=== PATIENT | female | born 1965 | race Caucasian/White ===

== ENCOUNTER 2019-07-15 12:34 | Outpatient (CLI) | payer BC, SELFPAY ==
--- NOTE | 2019-07-15 13:13 | MM_ITS ---
WS: [id number] RIGHT DIGITAL MAMMOGRAPHY WITH CAD CLINICAL INFORMATION: RT BREAST MASS COMPARISON: June 16, 2019 TECHNIQUE: 5 views of the right breast were obtained. FINDINGS: Scattered fibroglandular densities of the right breast. Stable prominent lymph nodes in the right axi lla. Stable 9 mm oval density upper outer right breast near the axillary tail. This persists on the s pot compression views. Ultrasound is pending. ULTRASOUND BREAST RIGHT TECHNIQUE: Ultrasound right breast focused area of concern. CLINICAL INFORMATION: RT BREAST MASS COMPARISON: None. FINDINGS: Ultrasound performed at the 9:00 position. There are 2 lymph nodes identified with preserved fatty hi lum. The largest measures 1.3 x 0.4 x 1.0 cm. This has a benign appearance. Additional incidental lym ph nodes are seen in this area. No evidence of pathologic mass or lesion to target for biopsy. No oth er suspicious findings. MM/[place] [id number] IMPRESSION: BI-RADS: 2-Benign FOLLOW UP: 1 Year Follow-up Recommend return to annual screening mammography.
--- NOTE | 2019-07-15 13:16 | US_ITS ---
WS: [id number] RIGHT DIGITAL MAMMOGRAPHY WITH CAD CLINICAL INFORMATION: RT BREAST MASS COMPARISON: June 16, 2019 TECHNIQUE: 5 views of the right breast were obtained. FINDINGS: Scattered fibroglandular densities of the right breast. Stable prominent lymph nodes in the right axi lla. Stable 9 mm oval density upper outer right breast near the axillary tail. This persists on the s pot compression views. Ultrasound is pending. ULTRASOUND BREAST RIGHT TECHNIQUE: Ultrasound right breast focused area of concern. CLINICAL INFORMATION: RT BREAST MASS COMPARISON: None. FINDINGS: Ultrasound performed at the 9:00 position. There are 2 lymph nodes identified with preserved fatty hi lum. The largest measures 1.3 x 0.4 x 1.0 cm. This has a benign appearance. Additional incidental lym ph nodes are seen in this area. No evidence of pathologic mass or lesion to target for biopsy. No oth er suspicious findings. US/US breast RT limited* [id number] IMPRESSION: BI-RADS: 2-Benign FOLLOW UP: 1 Year Follow-up Recommend return to annual screening mammography.
== END 2019-07-15 12:35 | disposition home or self-care (01) ==
LOC: RADSHAW 12:41
PROVIDERS: Family Provider Electrodiagnostic Medicine; PCP Electrodiagnostic Medicine; Visit Provider Electrodiagnostic Medicine
DX: N63.11 Unspecified lump in the right breast, upper outer quadrant (principal)
CPT/HCPCS: 76642; 77065

== ENCOUNTER → 2019-07-24 08:52 | Outpatient (BNVA) | payer BC, SELFPAY | PROVIDERS: Family Provider Electrodiagnostic Medicine; PCP Electrodiagnostic Medicine; Referring Provider Electrodiagnostic Medicine; Visit Provider Internal Medicine Rheumatology | DX: L40.50 Arthropathic psoriasis, unspecified (principal); L40.0 Psoriasis vulgaris; Z11.59 Encounter for screening for other viral diseases; Z79.899 Other long term (current) drug therapy; M54.5 Low back pain; M77.9 Enthesopathy, unspecified | CPT/HCPCS: 36415; 86704; 86705; 86803; 86812; 87340; 99214 ==

== ENCOUNTER 2019-08-11 10:50 | Outpatient (CLI) | payer BC, SELFPAY ==
--- NOTE | 2019-08-11 10:59 | XR_ITS ---
WS: [id number] RIGHT FOOT: 3 VIEW(S) TECHNIQUE: PA, oblique and lateral. HISTORY: psoriatic arthritis COMPARISON: None available. No acute fracture or dislocation. Normal tarsal/metatarsal alignment. No erosions or pencil in cup deformity at the IP joints. No soft tissue edema. Very small amount of calcification at the distal Achilles tendon. XR/XR foot RT min 3V* [id number] IMPRESSION: 1. Normal IVP joints. 2. Tiny amount calcification of the distal Achilles tendon.
--- NOTE | 2019-08-11 10:59 | XR_ITS ---
WS: [id number] LEFT FOOT: 3 VIEW(S) TECHNIQUE: PA, oblique and lateral. HISTORY: psoriatic arthritis COMPARISON: None available. No acute fracture or dislocation. Normal tarsal/metatarsal alignment. No pencil in cup deformities or interphalangeal joint space narrowing. No erosions. Enthesopathy at the Achilles tendon attachment. No erosions involving the posterior calcaneus. XR/XR foot LT min 3V* [id number] IMPRESSION: 1. No evidence for psoriatic arthritic changes at the IP joints. 2. Enthesopathy at the Achilles tendon attachment.
--- NOTE | 2019-08-11 10:59 | XR_ITS ---
WS: [id number] LEFT HAND: 3 VIEW(S) TECHNIQUE: PA, oblique and lateral. HISTORY: psoriatic arthritis COMPARISON: None available. No acute fracture or dislocation. IP joints are normal and symmetric. No erosions or enthesopathies. No bony bridging. No periostitis. XR/XR hand LT min 3V* [id number] IMPRESSION: Negative LEFT hand.
--- NOTE | 2019-08-11 10:59 | XR_ITS ---
WS: [id number] RIGHT HAND: 3 VIEW(S) TECHNIQUE: PA, oblique and lateral. HISTORY: psoriatic arthritis COMPARISON: None available. No acute fracture or dislocation. Interphalangeal joints are well-maintained. No erosions or periostitis. No soft tissue edema or displ acement. XR/XR hand RT min 3V* [id number] IMPRESSION: Normal RIGHT hand.
--- NOTE | 2019-08-11 10:59 | XR_ITS ---
WS: [id number] CHEST 2 VIEWS HISTORY: high risk medication use COMPARISON: None available. Lungs: Clear with no abnormality. No pleural effusion or pneumothorax. Cardiac size: Normal. Mediastinum/Aorta: Normal mediastinum. Bones: Normal. XR/XR chest 2V insp/exp [id number] IMPRESSION: Normal chest.
--- NOTE | 2019-08-11 10:59 | XR_ITS ---
WS: [id number] PELVIS: AP VIEW SUBMITTED HISTORY: Psoriatic arthritis, inflammatory back pain COMPARISON: None available. SI joints are symmetric bilaterally. No widening or erosions or sclerosis. Mild enthesopathy from the iliac crest. No bone destruction. No joint space narrowing of the hips. XR/XR pelvis 1-2V* [id number] IMPRESSION: Negative SI joints.
--- NOTE | 2019-08-11 10:59 | XR_ITS ---
WS: [id number] LEFT ELBOW: 2 VIEW(S) TECHNIQUE: AP and lateral. HISTORY: psoriatic arthritis COMPARISON: None available. No acute fractures or dislocation. No joint effusion. No erosions or bone hypertrophy. No soft tissue abnormality. XR/XR elbow LT 2V [id number] IMPRESSION: Normal LEFT elbow.
--- NOTE | 2019-08-11 10:59 | XR_ITS ---
WS: [id number] RIGHT ELBOW: 2 VIEW(S) TECHNIQUE: AP and lateral. HISTORY: psoriatic arthritis COMPARISON: None available. No acute fractures or dislocation. No joint effusion. No erosions or bone hypertrophy. No soft tissue abnormality. XR/XR elbow RT 2V [id number] IMPRESSION: Normal RIGHT elbow.
== END 2019-08-11 10:51 | disposition home or self-care (01) ==
LOC: RADWPI 10:53
PROVIDERS: Family Provider Electrodiagnostic Medicine; PCP Electrodiagnostic Medicine; Visit Provider Internal Medicine Rheumatology
DX: Z79.899 Other long term (current) drug therapy (principal); L40.50 Arthropathic psoriasis, unspecified; M54.9 Dorsalgia, unspecified
CPT/HCPCS: 71046; 72170; 73070; 73130; 73630

== ENCOUNTER → 2019-08-28 10:47 | Outpatient (BNVA) | payer BC, SELFPAY | PROVIDERS: Family Provider Electrodiagnostic Medicine; PCP Electrodiagnostic Medicine; Visit Provider Internal Medicine Rheumatology | DX: L40.0 Psoriasis vulgaris (principal); L40.50 Arthropathic psoriasis, unspecified; Z79.899 Other long term (current) drug therapy; Z11.59 Encounter for screening for other viral diseases; Z72.89 Other problems related to lifestyle | CPT/HCPCS: 36415; 80076; 82565; 86140; 86480; 86812 ==

== ENCOUNTER → 2019-08-28 10:55 | Outpatient (BNVA) | payer BC, SELFPAY | PROVIDERS: Family Provider Electrodiagnostic Medicine; PCP Electrodiagnostic Medicine; Visit Provider Internal Medicine Rheumatology | DX: L40.0 Psoriasis vulgaris (principal); L40.50 Arthropathic psoriasis, unspecified; Z79.899 Other long term (current) drug therapy | CPT/HCPCS: 85025 ==

== ENCOUNTER → 2019-12-18 09:53 | Outpatient (BNVA) | payer BC, SELFPAY | PROVIDERS: Family Provider Electrodiagnostic Medicine; PCP Electrodiagnostic Medicine; Visit Provider Internal Medicine Rheumatology | DX: Z79.899 Other long term (current) drug therapy (principal) | CPT/HCPCS: 36415; 80076; 82565; 85025; 85651; 86140 ==

== ENCOUNTER → 2020-02-23 15:22 | Outpatient (BNVA) | payer BC, SELFPAY | PROVIDERS: Family Provider Electrodiagnostic Medicine; PCP Electrodiagnostic Medicine; Visit Provider Internal Medicine Rheumatology | DX: L40.0 Psoriasis vulgaris (principal); L40.50 Arthropathic psoriasis, unspecified; Z79.899 Other long term (current) drug therapy; M77.9 Enthesopathy, unspecified; F17.210 Nicotine dependence, cigarettes, uncomplicated | CPT/HCPCS: 99214 ==

== ENCOUNTER → 2020-05-06 09:57 | Outpatient (BNVA) | payer BC, SELFPAY | PROVIDERS: Family Provider Electrodiagnostic Medicine; PCP Electrodiagnostic Medicine; Visit Provider Internal Medicine Rheumatology | DX: Z79.899 Other long term (current) drug therapy (principal) | CPT/HCPCS: 36415; 80076; 82565; 85025; 85651; 86140 ==

== ENCOUNTER → 2020-05-18 08:56 | Outpatient (BNVA) | payer BC, SELFPAY | PROVIDERS: Family Provider Electrodiagnostic Medicine; PCP Electrodiagnostic Medicine; Visit Provider Internal Medicine Rheumatology | DX: L40.0 Psoriasis vulgaris (principal); M77.9 Enthesopathy, unspecified; M77.11 Lateral epicondylitis, right elbow; F17.210 Nicotine dependence, cigarettes, uncomplicated; L40.50 Arthropathic psoriasis, unspecified; Z79.899 Other long term (current) drug therapy | CPT/HCPCS: 99214 ==

== ENCOUNTER 2020-08-03 08:10 | Outpatient (CLI) | payer BC, SELFPAY ==
--- NOTE | 2020-08-03 08:39 | MM_ITS ---
WS: [id number] BILATERAL SCREENING DIGITAL MAMMOGRAM WITH CAD HISTORY: SCREENING COMPARISON: 07/15/2019, 06/16/2019 and 05/03/2017 Bilateral CC and MLO views submitted. Computer aided detection analyzed. Breast composition: There are scattered areas of fibroglandular density. No suspicious masses, microc alcifications or architectural distortion. Benign calcifications. No interval change. MM/[place] [id number] IMPRESSION: BI-RADS: 2-Benign FOLLOW UP: 1 Year Follow-up
== END 2020-08-03 08:11 | disposition home or self-care (01) ==
LOC: RADSHAW 08:14
PROVIDERS: PCP Electrodiagnostic Medicine; Visit Provider Electrodiagnostic Medicine
DX: Z12.31 Encounter for screening mammogram for malignant neoplasm of breast (principal)
CPT/HCPCS: 77067

== ENCOUNTER → 2020-09-20 09:10 | Outpatient (BNVA) | payer BC, SELFPAY | PROVIDERS: PCP Electrodiagnostic Medicine; Visit Provider Internal Medicine Rheumatology | DX: L40.50 Arthropathic psoriasis, unspecified (principal); Z79.899 Other long term (current) drug therapy | CPT/HCPCS: 36415; 80076; 82565; 85025; 86140 ==

== ENCOUNTER → 2020-10-28 13:50 | Outpatient (BNVA) | payer BC, SELFPAY | PROVIDERS: PCP Electrodiagnostic Medicine; Visit Provider Internal Medicine Rheumatology | DX: L40.50 Arthropathic psoriasis, unspecified (principal); L40.0 Psoriasis vulgaris; Z79.899 Other long term (current) drug therapy; F17.210 Nicotine dependence, cigarettes, uncomplicated | CPT/HCPCS: 99214 ==

== ENCOUNTER → 2021-02-16 14:19 | Outpatient (BNVA) | payer BC, SELFPAY | PROVIDERS: PCP Electrodiagnostic Medicine; Visit Provider Internal Medicine Rheumatology | DX: L40.0 Psoriasis vulgaris (principal); L40.50 Arthropathic psoriasis, unspecified; Z71.89 Other specified counseling; Z79.899 Other long term (current) drug therapy | CPT/HCPCS: 36415; 80076; 82565; 85025; 86140 ==

== ENCOUNTER → 2021-02-21 08:46 | Outpatient (BNVA) | payer BC, SELFPAY | PROVIDERS: PCP Electrodiagnostic Medicine; Visit Provider Internal Medicine Rheumatology | DX: L40.0 Psoriasis vulgaris (principal); L40.50 Arthropathic psoriasis, unspecified; Z79.899 Other long term (current) drug therapy; Z71.89 Other specified counseling; F17.200 Nicotine dependence, unspecified, uncomplicated | CPT/HCPCS: 99214 ==

== ENCOUNTER → 2021-05-31 09:14 | Outpatient (BNVA) | payer BC, SELFPAY | PROVIDERS: PCP Electrodiagnostic Medicine; Visit Provider Internal Medicine Rheumatology | DX: L40.50 Arthropathic psoriasis, unspecified (principal); Z79.899 Other long term (current) drug therapy | CPT/HCPCS: 36415; 80076; 82565; 85025; 86140 ==

== ENCOUNTER 2021-11-28 12:28 | Outpatient (CLI) | payer BC, SELFPAY ==
[2021-11-28 13:02] LABS: Basophils % 0.4 %; Eosinophils # 0.4 10^3/uL (0.0-0.8); Eosinophils % 3.2 %; Hematocrit 50.5 % (37.0-47.0); Hemoglobin 15.6 g/dL (11.5-15.3); Lymphocytes # 2.3 10^3/uL (0.8-4.8); Lymphocytes % 20.4 %; Mean Corpuscular HGB Conc 30.9 g/dL (30.0-36.0); Mean Corpuscular Hemoglobin 29.1 pg (28.0-34.0); Mean Corpuscular Volume 94.2 fl (81-99); Monocytes # 0.4 10^3/uL (0.2-0.9); Monocytes % 3.8 %; Neutrophils # 7.97 10^3/uL (1.8-7.7); Neutrophils % 71.7 %; Nucleated Red Blood Cells % 0 %; Platelet Count 349 10^3/cmm (130-400); Red Blood Count 5.36 10^6/uL (4.1-5.3); Red Cell Distribution Width 14.1 % (12.1-15.1); White Blood Count 11.1 10^3/uL (4.0-10.0)
[2021-11-28 13:25] LABS: Albumin Level 3.9 g/dL (3.5-5.2); Alkaline Phosphatase 78 IU/L (35-105); Globulin 4.1 g/dL (1.3-4.6); Glomerular Filtration Rate 102.7 mL/min (90-130); Total Bilirubin 0.5 mg/dL (0.15-1.2)
[2021-11-28 14:04] LABS: Alanine Aminotransferase 19 U/L (0-33); Aspartate Amino Transferase 24 U/L (0-32)
== END 2021-11-28 12:29 | disposition home or self-care (01) ==
LOC: LAB 12:30
PROVIDERS: PCP Electrodiagnostic Medicine; Visit Provider Internal Medicine Rheumatology
DX: L40.0 Psoriasis vulgaris (principal); L40.50 Arthropathic psoriasis, unspecified; Z79.899 Other long term (current) drug therapy
CPT/HCPCS: 80076; 82565; 85025; 86140

== ENCOUNTER 2022-05-09 08:34 | Outpatient (CLI) | payer BC, SELFPAY ==
[2022-05-09 09:08] LABS: Basophils # 0.1 10^3/uL (0.0-0.1); Basophils % 0.6 %; Eosinophils # 0.3 10^3/uL (0.0-0.8); Eosinophils % 2.7 %; Hematocrit 47.6 % (37.0-47.0); Hemoglobin 15.5 g/dL (11.5-15.3); Lymphocytes # 1.7 10^3/uL (0.8-4.8); Lymphocytes % 16.8 %; Mean Corpuscular HGB Conc 32.6 g/dL (30.0-36.0); Mean Corpuscular Volume 95.2 fl (81-99); Mean Platelet Volume 8.8 fL (7.4-10.4); Monocytes # 0.4 10^3/uL (0.2-0.9); Monocytes % 4.1 %; Neutrophils # 7.55 10^3/uL (1.8-7.7); Neutrophils % 75.3 %; Nucleated Red Blood Cells % 0 %; Platelet Count 321 10^3/cmm (130-400); Red Cell Distribution Width 13.9 % (12.1-15.1)
[2022-05-09 09:28] LABS: Alanine Aminotransferase 24 U/L (0-33); Albumin Level 3.6 g/dL (3.5-5.2); Alkaline Phosphatase 86 U/L (35-105); Aspartate Amino Transferase 24 U/L (0-32); C Reactive Protein 15.8 mg/L (0.0-4.9); Globulin 3.8 g/dL (1.3-4.6); Glomerular Filtration Rate 102.3 mL/min (90-130); Total Bilirubin 0.3 mg/dL (0.15-1.2); Total Protein 7.4 g/dL (6.6-8.7)
== END 2022-05-09 08:35 | disposition home or self-care (01) ==
PROVIDERS: PCP Electrodiagnostic Medicine; Visit Provider Internal Medicine Rheumatology
DX: L40.50 Arthropathic psoriasis, unspecified (principal); Z79.899 Other long term (current) drug therapy
CPT/HCPCS: 80076; 82565; 85025; 86140

== ENCOUNTER 2022-10-02 08:33 | Outpatient (CLI) | payer BC, SELFPAY ==
[2022-10-02 09:16] LABS: Basophils % 0.3 %; Eosinophils # 0.3 10^3/uL (0.0-0.8); Eosinophils % 3.1 %; Hematocrit 47.1 % (37.0-47.0); Hemoglobin 15.8 g/dL (11.5-15.3); Lymphocytes # 1.7 10^3/uL (0.8-4.8); Mean Corpuscular HGB Conc 33.5 g/dL (30.0-36.0); Mean Corpuscular Volume 92.5 fl (81-99); Mean Platelet Volume 9.5 fL (7.4-10.4); Monocytes # 0.4 10^3/uL (0.2-0.9); Monocytes % 4.4 %; Neutrophils # 6.85 10^3/uL (1.8-7.7); Neutrophils % 73.9 %; Nucleated Red Blood Cells % 0 %; Platelet Count 313 10^3/cmm (130-400); Red Blood Count 5.09 10^6/uL (4.1-5.3); Red Cell Distribution Width 12.8 % (12.1-15.1); White Blood Count 9.3 10^3/uL (4.0-10.0)
[2022-10-02 09:35] LABS: Estmated Average Glucose 103; Hemoglobin A1C 5.2 % (4.0-6.0)
[2022-10-02 09:37] LABS: Alanine Aminotransferase 18 U/L (0-33); Albumin Level 4.2 g/dL (3.5-5.2); Alkaline Phosphatase 68 U/L (35-105); Aspartate Amino Transferase 18 U/L (0-32); C Reactive Protein 10.4 mg/L (0.0-4.9); Globulin 3.3 g/dL (1.3-4.6); Glomerular Filtration Rate 126.3 mL/min (90-130); Total Bilirubin 0.5 mg/dL (0.15-1.2); Total Protein 7.5 g/dL (6.6-8.7)
== END 2022-10-02 08:34 | disposition home or self-care (01) ==
PROVIDERS: PCP Electrodiagnostic Medicine; Visit Provider Internal Medicine Rheumatology
DX: L40.50 Arthropathic psoriasis, unspecified (principal); Z79.899 Other long term (current) drug therapy
CPT/HCPCS: 36415; 80076; 82565; 83036; 85025; 86140

== ENCOUNTER 2023-01-17 13:29 | Outpatient (CLI) | payer BC, SELFPAY ==
[2023-01-17 14:23] LABS: Basophils % 0.3 %; Eosinophils # 0.3 10^3/uL (0.0-0.8); Eosinophils % 3.4 %; Lymphocytes # 2.5 10^3/uL (0.8-4.8); Lymphocytes % 26.4 %; Mean Corpuscular HGB Conc 33.3 g/dL (30.0-36.0); Mean Corpuscular Hemoglobin 31.9 pg (28.0-34.0); Mean Corpuscular Volume 95.7 fl (81-99); Mean Platelet Volume 8.9 fL (7.4-10.4); Monocytes # 0.4 10^3/uL (0.2-0.9); Monocytes % 4.2 %; Neutrophils # 6.19 10^3/uL (1.8-7.7); Neutrophils % 65.3 %; Nucleated Red Blood Cells % 0 %; Platelet Count 298 10^3/cmm (130-400); Red Cell Distribution Width 12.8 % (12.1-15.1); White Blood Count 9.5 10^3/uL (4.0-10.0)
[2023-01-17 14:42] LABS: Alanine Aminotransferase 37 U/L (0-33); Albumin Level 4.1 g/dL (3.5-5.2); Alkaline Phosphatase 82 U/L (35-105); Aspartate Amino Transferase 28 U/L (0-32); Globulin 2.9 g/dL (1.3-4.6); Glomerular Filtration Rate 85.4 mL/min (90-130); Total Bilirubin 0.5 mg/dL (0.15-1.2)
== END 2023-01-17 13:30 | disposition home or self-care (01) ==
LOC: LAB 13:32
PROVIDERS: PCP Electrodiagnostic Medicine; Visit Provider Internal Medicine Rheumatology
DX: L40.50 Arthropathic psoriasis, unspecified (principal); Z79.899 Other long term (current) drug therapy
CPT/HCPCS: 36415; 80076; 82565; 85025; 86140

== ENCOUNTER 2023-04-10 14:02 | Outpatient (CLI) | payer BC, SELFPAY ==
[2023-04-12 19:25] LABS: Quantiferon Mitogen 7.56 IU/mL; Quantiferon Nil 0.02 IU/mL; Quantiferon TB Gold NEGATIVE (NEGATIVE)
== END 2023-04-10 14:03 | disposition home or self-care (01) ==
PROVIDERS: PCP Electrodiagnostic Medicine; Visit Provider Internal Medicine Rheumatology
DX: L40.50 Arthropathic psoriasis, unspecified (principal); L40.0 Psoriasis vulgaris; Z79.899 Other long term (current) drug therapy
CPT/HCPCS: 36415; 86480

== ENCOUNTER 2023-10-24 11:32 | Outpatient (CLI) | payer BC, SELFPAY ==
--- NOTE | 2023-10-24 11:37 | MM_ITS ---
WS: [id number] BILATERAL SCREENING DIGITAL TOMOSYNTHESIS MAMMOGRAM WITH CAD HISTORY: SCREENING COMPARISON: 08/03/2020, 06/16/2019 Bilateral CC and MLO views with tomosynthesis and synthetic mammography submitted. Computer aided det ection analyzed. Breast composition: There are scattered areas of fibroglandular density. No suspicious masses, microc alcifications or architectural distortion. IMPRESSION: MM/[place] [id number] BI-RADS: 1-Negative FOLLOW UP: 1 Year Follow-up
== END 2023-10-24 11:33 | disposition home or self-care (01) ==
LOC: RAD 11:33
PROVIDERS: PCP Electrodiagnostic Medicine; Visit Provider Electrodiagnostic Medicine
DX: Z12.31 Encounter for screening mammogram for malignant neoplasm of breast (principal)
CPT/HCPCS: 77063; 77067

== ENCOUNTER → 2023-11-06 15:23 | Outpatient (BNVA) | payer BC, SELFPAY | PROVIDERS: PCP Electrodiagnostic Medicine; Visit Provider Internal Medicine Rheumatology | DX: L40.50 Arthropathic psoriasis, unspecified (principal); Z79.899 Other long term (current) drug therapy; Z11.59 Encounter for screening for other viral diseases; Z11.1 Encounter for screening for respiratory tuberculosis; L40.0 Psoriasis vulgaris; Z71.89 Other specified counseling | CPT/HCPCS: 36415; 80076; 82565; 85025; 86140; 86480; 86704; 86803; 87340 ==

== ENCOUNTER 2023-11-26 07:48 | Outpatient (CLI) | payer BC, SELFPAY ==
--- NOTE | 2023-11-26 07:58 | CT_ITS ---
WS: [id number] LDCT LUNG CANCER SCREENING TECHNIQUE: Noncontrast CT of the chest with coronal and sagittal reformatted images. CLINICAL INFORMATION: NICOTINE DEPENDENCE, UNSPECIFIED, UNCOMPLICATED COMPARISON: None. DLP: 213.66 mGy.cm DIvol: Mean CTDIvol: 5.30 (mGy) All CT scans at [facility] use at least one of these dose optimization techniques: automat ed exposure control; mA and/or kV adjustment per patient size (includes targeted exams where dose is matched to clinical indication); or iterative reconstruction. FINDINGS: Small subcentimeter nodule RIGHT hilum measuring 3 mm. Calcified granuloma RIGHT upper lobe . A few calcified granulomas. Normal caliber thoracic aorta. Aortic calcification. No mediastinal or hilar lymphadenopathy. No axil lizeth lymphadenopathy. Hepatomegaly. Cholecystectomy clips. Tiny esophageal hiatal hernia. Adrenal glands are normal. Tiny c yst in the liver. CT/CT lung screening [id number] IMPRESSION: LUNG-RADS: 2-Benign Appearance or Behavior FOLLOW UP: 12 Month: Continue annual screening with LDCT
== END 2023-11-26 07:49 | disposition home or self-care (01) ==
LOC: RAD 07:49
PROVIDERS: PCP Electrodiagnostic Medicine; Visit Provider Electrodiagnostic Medicine
DX: Z12.2 Encounter for screening for malignant neoplasm of respiratory organs (principal); F17.200 Nicotine dependence, unspecified, uncomplicated
CPT/HCPCS: 71271

== ENCOUNTER 2023-12-13 08:22 | Outpatient (CLI) | payer BC, SELFPAY ==
--- NOTE | 2023-12-13 08:29 | CT_ITS ---
WS: [id number] CT NECK WITH CONTRAST HISTORY: LYMPHADENOPATHY TECHNIQUE: Contiguous 2 mm axial images are performed through the neck with intravenous contrast. Sag ittal and coronal reformats are also submitted. All CT scans at [facility] use at least one o f these dose optimization techniques: automated exposure control; mA and/or kV adjustment per patient size (includes targeted exams where dose is matched to clinical indication); or iterative reconstruc tion. CONTRAST: CONTRAST: Omnipaque 350; 100 mL IV. DLP: 285.58 mGy.cm COMPARISON: 10/25/2017 Nasopharynx, oropharynx, hypopharynx and larynx are unremarkable. No soft tissue masses or abnormal e nhancement. Torus tubarius and fossa of Rosenmuller and parapharyngeal fat are normal. Small benign cervical chain lymph nodes. No necrotic or enlarged lymph nodes. Largest lymph node chase ures 11 mm on the LEFT at level 2. In the RIGHT supraclavicular region at the site of the palpable ab normality there is a small benign-appearing lymph node. Prominent adipose tissue. No mass. No fluid c ollection. Thyroid gland and salivary glands are normally enhancing with no masses. No osseous abnormalities. Visualized portions of the skull base demonstrate no abnormalities. Orbits and globes are within norm al limits. No soft tissue masses. Visualized paranasal sinuses and mastoid air cells are normal. Lung apices are clear. CT/CT neck w con* [id number] IMPRESSION: 1. Palpable area in the LEFT supraclavicular region is normal. Prominent adipo se tissue and there are few very small benign lymph nodes. 2. No cervical chain adenopathy. 3. No neck mass.
[2023-12-13] MEDS: iohexol 350 mg/mL 500 mL Btl (per mL) IV (08:58)
== END 2023-12-13 08:23 | disposition home or self-care (01) ==
LOC: RAD 08:22
PROVIDERS: PCP Electrodiagnostic Medicine; Visit Provider Electrodiagnostic Medicine
DX: R59.9 Enlarged lymph nodes, unspecified (principal)
CPT/HCPCS: 70491; Q9967

== ENCOUNTER 2024-03-03 08:46 | Oncology outpatient (recurring) (ONCR) | payer BC, SELFPAY ==
[2024-03-03] VITALS (8 sets, daily range): BP systolic 110–137; BP diastolic 61–78; PULSE 65–95; RESP 16; TEMP 36.2–36.7; O2SAT 90–95
[2024-03-03] MEDS: sodium chloride 0.9% 250 ML 75 ML IV (09:13)
[2024-03-03] MEDS: acetaminophen 325 mg Tablet 650 MG PO (09:14)
[2024-03-03] MEDS: methylPREDNISolone sod succ 40 mg/mL INJ IVP (09:14)
[2024-03-03] MEDS: diphenhydrAMINE 50 mg/mL SDV 1mL 25 MG IVP (09:17)
[2024-03-03 09:18] LABS: Basophils % 0.3 %; Eosinophils # 0.2 10^3/uL (0.0-0.8); Eosinophils % 1.6 %; Hematocrit 46.7 % (36-47); Lymphocytes # 1.8 10^3/uL (0.8-4.8); Lymphocytes % 18.3 %; Mean Corpuscular HGB Conc 33.6 g/dL (30-55); Mean Corpuscular Hemoglobin 31.8 pg (27-33); Mean Corpuscular Volume 94.5 fl (85-98); Mean Platelet Volume 9.2 fL (7.4-10.4); Monocytes # 0.4 10^3/uL (0.2-0.9); Monocytes % 4.3 %; Neutrophils # 7.24 10^3/uL (1.8-7.7); Neutrophils % 75.3 %; Nucleated Red Blood Cells % 0 %; Platelet Count 345 10^3/cmm (157-399); Red Blood Count 4.94 10^6/uL (3.85-5.65); White Blood Count 9.61 10^3/uL (3.29-11.43)
[2024-03-03 09:39] LABS: Alanine Aminotransferase 19 U/L (0-33); Albumin Level 4.6 g/dL (3.5-5.2); Alkaline Phosphatase 82 U/L (35-105); Aspartate Amino Transferase 18 U/L (0-32); C Reactive Protein 11.3 mg/L (0.0-4.9); Creatinine Clr Calc Pharmacy 125.3591; Globulin 3.1 g/dL (1.3-4.6); Glomerular Filtration Rate 101.6 mL/min (90-130); Total Bilirubin 0.5 mg/dL (0.15-1.2); Total Protein 7.7 g/dL (6.6-8.7)
== END 2024-03-08 23:59 | disposition home or self-care (01) ==
PROVIDERS: PCP Electrodiagnostic Medicine; Visit Provider Internal Medicine Rheumatology
DX: Z79.899 Other long term (current) drug therapy (principal); L40.50 Arthropathic psoriasis, unspecified
CPT/HCPCS: 80076; 82565; 85025; 86140; 96375; 96413; 96415; A4222; J1200; J1745; J2919; J7050

== ENCOUNTER 2024-11-21 10:13 | Outpatient (CLI) | payer BC, SELFPAY ==
[2024-11-21 10:33] LABS: Basophils % 0.2 %; Eosinophils # 0.4 10^3/uL (0.0-0.8); Eosinophils % 3.3 %; Hematocrit 47.7 % (36-47); Lymphocytes % 16.3 %; Mean Corpuscular HGB Conc 31.9 g/dL (30-55); Mean Corpuscular Hemoglobin 29.5 pg (27-33); Mean Corpuscular Volume 92.6 fl (85-98); Mean Platelet Volume 8.9 fL (7.4-10.4); Monocytes # 0.5 10^3/uL (0.2-0.9); Monocytes % 3.7 %; Neutrophils # 9.53 10^3/uL (1.8-7.7); Neutrophils % 76.1 %; Nucleated Red Blood Cells % 0 %; Platelet Count 332 10^3/cmm (157-399); Red Blood Count 5.15 10^6/uL (3.85-5.65); Red Cell Distribution Width 13.7 % (12.1-15.1); White Blood Count 12.52 10^3/uL (3.29-11.43)
[2024-11-21 10:36] LABS: Erythrocyte Sedimentation Rate 26 mm/hr (0-15)
[2024-11-21 10:49] LABS: Estmated Average Glucose 123; Hemoglobin A1C 5.9 % (4.0-6.0)
[2024-11-21 10:58] LABS: Alanine Aminotransferase 18 U/L (0-33); Albumin Level 4.2 g/dL (3.5-5.2); Alkaline Phosphatase 94 U/L (35-105)
[2024-11-21 11:10] LABS: Aspartate Amino Transferase 16 U/L (0-32); C Reactive Protein 16.1 mg/L (0.0-4.9); Globulin 3.2 g/dL (1.3-4.6); Glomerular Filtration Rate 85.1 mL/min (90-130); Total Bilirubin 0.6 mg/dL (0.15-1.2); Total Protein 7.4 g/dL (6.6-8.7)
== END 2024-11-21 10:14 | disposition home or self-care (01) ==
PROVIDERS: PCP Electrodiagnostic Medicine; Visit Provider Internal Medicine Rheumatology
DX: L40.50 Arthropathic psoriasis, unspecified (principal); Z79.899 Other long term (current) drug therapy
CPT/HCPCS: 36415; 80076; 82565; 83036; 85025; 85651; 86140

== ENCOUNTER → 2025-02-04 12:30 | Outpatient (BNVA) | payer BC, SELFPAY | PROVIDERS: PCP Electrodiagnostic Medicine; Visit Provider Internal Medicine | DX: E03.9 Hypothyroidism, unspecified (principal); E66.01 Morbid (severe) obesity due to excess calories | CPT/HCPCS: 36415; 84439; 84443 ==

== ENCOUNTER 2025-02-06 08:20 | Outpatient (CLI) | payer BC, SELFPAY ==
[2025-02-06 09:34] LABS: Creatinine 24 Hour Urine 1491.8 mg/dL (601-1689); Total Volume Urine 975 ml
== END 2025-02-06 08:21 | disposition home or self-care (01) ==
PROVIDERS: PCP Electrodiagnostic Medicine; Visit Provider Internal Medicine
DX: E66.01 Morbid (severe) obesity due to excess calories (principal); E03.9 Hypothyroidism, unspecified
CPT/HCPCS: 82530; 82570

== ENCOUNTER 2025-04-13 10:23 | Outpatient (CLI) | payer BC, SELFPAY ==
[2025-04-13 11:15] LABS: Hematocrit 49.1 % (36-47); Hemoglobin 16.10 g/dL (11.27-16.99); Mean Corpuscular HGB Conc 32.8 g/dL (30-55); Mean Corpuscular Hemoglobin 30.3 pg (27-33); Mean Corpuscular Volume 92.3 fl (85-98); Nucleated Red Blood Cells % 0 %; Platelet Count 330 10^3/cmm (157-399); Red Blood Count 5.32 10^6/uL (3.85-5.65); White Blood Count 10.63 10^3/uL (3.29-11.43)
[2025-04-13 11:42] LABS: Alanine Aminotransferase 15 U/L (0-33); Albumin Level 4.3 g/dL (3.5-5.2); Alkaline Phosphatase 88 U/L (35-105); Aspartate Amino Transferase 17 U/L (0-32); Globulin 3.4 g/dL (1.3-4.6); Total Protein 7.7 g/dL (6.6-8.7)
== END 2025-04-13 10:24 | disposition home or self-care (01) ==
PROVIDERS: PCP Electrodiagnostic Medicine; Visit Provider Internal Medicine Rheumatology
DX: L40.0 Psoriasis vulgaris (principal); Z79.899 Other long term (current) drug therapy
CPT/HCPCS: 36415; 80076; 82565; 85025; 85651; 86140

== ENCOUNTER 2025-05-06 07:47 | Outpatient (CLI) | payer BC, SELFPAY ==
--- NOTE | 2025-05-06 07:52 | MM_ITS ---
WS: [id number] BILATERAL SCREENING DIGITAL TOMOSYNTHESIS MAMMOGRAM WITH CAD HISTORY: SCREENING COMPARISON: None available. Bilateral CC and MLO views with tomosynthesis and synthetic mammography submitted. Computer aided detection analyzed. Breast composition: There are scattered areas of fibroglandular density. No suspicious masses, microcalcifications or architectural distortion. Benign- appearing but numerous lymph nodes in the axilla. MM/MM scr tomosynthesis [id number] IMPRESSION: BI-RADS: 2 - Benign. FOLLOW UP: 1 Year Follow-up
== END 2025-05-06 07:48 | disposition home or self-care (01) ==
PROVIDERS: PCP Electrodiagnostic Medicine; Visit Provider Electrodiagnostic Medicine
DX: Z12.31 Encounter for screening mammogram for malignant neoplasm of breast (principal); R92.323 Mammographic fibroglandular density, bilateral breasts; D36.0 Benign neoplasm of lymph nodes
CPT/HCPCS: 77063; 77067

== ENCOUNTER 2025-05-07 15:27 | Outpatient (CLI) | payer BC, SELFPAY ==
--- NOTE | 2025-05-07 15:29 | XR_ITS ---
WS: [id number] DEXA (DUAL ENERGY X-RAY ABSORPTIOMETRY) Bone mineral density was performed using a Simple [employer] machine. HISTORY: ASYMPTOMATIC MENOPAUSAL STATE COMPARISON: None available. Lumbar spine BMD (L1-L4): 1.183 g/cm2 T score: 0.0 Z score: 0.2 Total hip BMD: Left: 0.925 g/cm2. T score: -0.7 Z score: -0.5 Right: 0.928 g/cm2. T score: -0.6 Z score: -0.4 10 year probability of a major osteoporotic fracture is 16.8%. XR/XR DEXA axial skeleton* [id number] IMPRESSION: NORMAL BONE MINERAL DENSITY based upon the WHO classification for females.
== END 2025-05-07 15:28 | disposition home or self-care (01) ==
LOC: RAD 15:27
PROVIDERS: PCP Electrodiagnostic Medicine; Visit Provider Electrodiagnostic Medicine
DX: Z13.820 Encounter for screening for osteoporosis (principal); Z78.0 Asymptomatic menopausal state
CPT/HCPCS: 77080